=== PATIENT | male | born 1960 | race American Indian/Alaskan Native ===

== ENCOUNTER 2019-03-25 06:33 | Inpatient (IN) | payer OTHER ==
[2019-03-19 11:18] LABS: Basophils % (Auto) 0.6 % (0.0-1.8); Eosinophils % (Auto) 0.9 % (0.0-4.3); Hematocrit 41.5 % (35.5-45.6); Hemoglobin 13.5 gm/dl (11.8-15.2); Lymphocytes # (Auto) 1.2 K/mm3 (1.2-5.4); Lymphocytes % (Auto) 33.7 % (13.4-35.0); Mean Corpuscular HGB Conc 33 % (32-34); Mean Corpuscular Volume 85 fl (84-94); Monocytes # (Auto) 0.6 K/mm3 (0.0-0.8); Monocytes % (Auto) 15.9 % (0.0-7.3); Platelet Count 233 K/mm3 (140-440); Red Blood Count 4.86 M/mm3 (3.65-5.03); Red Cell Distribution Width 15.4 % (13.2-15.2)
[2019-03-19 11:27] LABS: INR 1.06 (0.87-1.13)
[2019-03-19 11:28] LABS: Partial Thromboplastin Time 26.2 Sec. (24.2-36.6)
[2019-03-19 11:30] LABS: Alanine Aminotransferase 44 units/L (7-56); Albumin 4.2 g/dL (3.9-5); BUN/Creatinine Ratio 13; Blood Urea Nitrogen 16 mg/dL (9-20); Calcium 9.3 mg/dL (8.4-10.2); Hemolysis Index 18
--- NOTE | 2019-03-19 12:02 | Anesthesia Consultation ---
Anesthesia Consult and Med Hx Date of service: 03/19/19 - Airway Anesthetic Teeth Evaluation: Good ROM Head & Neck: Adequate Mental/Hyoid Distance: Adequate Mallampati Class: Class II Intubation Access Assessment: Probably Good - Pulmonary Exam CTA: Yes - Cardiac Exam Cardiac Exam: RRR - Pre-Operative Health Status ASA Pre-Surgery Classification: ASA2 Proposed Anesthetic Plan: General - Pulmonary Hx Smoking: Yes (STOPPED X 9 YRS) Hx Respiratory Symptoms: No Hx Sleep Apnea: No (LAURYN PRE SCREEN HIGH RISK.) - Cardiovascular System Hx Hypertension: Yes Hx Heart Attack/AMI: No (reports recent neg stress test) - Central Nervous System Hx Seizures: No CVA: No - Gastrointestinal Hx Ulcer: Yes (UGIB 2/2 PUD requiring transfusion in 10/2018) Hx Gastroesophageal Reflux Disease: No - Endocrine Hx Renal Disease: No Hx Liver Disease: No Hx Insulin Dependent Diabetes: No Hx Non-Insulin Dependent Diabetes: No Hx Thyroid Disease: No - Hematic Hx Anemia: No - Other Systems Hx Cancer: Yes (prostate Ca) Hx Obesity: No
[~2019-03-25 06:33] MED LIST: NEURONTIN PO NR; VERSED IV NR
[2019-03-25] MEDS ORDERED: METHYLENE BLUE ONE (07:14)
[2019-03-25] MEDS ORDERED: NEOSPORIN GU IR ONE ×2 (07:14→09:13)
[2019-03-25] MEDS ORDERED: TYLENOL PO ONE (07:21)
--- NOTE | 2019-03-25 07:21 | Anesthesia Day of Surgery ---
Anesthesia Day of Surgery - Day of Surgery Patient Examined: Yes Patient H&P Reviewed: Yes Patient is NPO: Yes Beta Blockers: Yes Cardiac Clearance: Yes
[2019-03-25] MEDS: LACTATED RINGERS 1,000 ML IV SCH (07:30)
[2019-03-25] MEDS ORDERED: XYLOCAINE MPF 2% ONE (07:50)
[2019-03-25] MEDS ORDERED: ZEMURON IV ONE ×2 (07:50→08:49)
[2019-03-25] MEDS ORDERED: ANCEF/STERILE WATER 2 GM/20 ML 2 GM/20 ML SYRINGE IV NR (07:50)
[2019-03-25] MEDS ORDERED: SUBLIMAZE ONE (07:51)
[2019-03-25] MEDS ORDERED: DIPRIVAN 10 MG/ML IV ONE (07:51)
[2019-03-25] MEDS ORDERED: VERSED ONE (07:51)
[2019-03-25] MEDS ORDERED: NORCO 5/325 PO PRN (07:54)
[2019-03-25] MEDS ORDERED: NARCAN 0.4 MG/1 ML IV PRN (07:54)
[2019-03-25] MEDS ORDERED: PERCOCET 5/325 PO PRN (07:54)
--- NOTE | 2019-03-25 07:59 | Post Operative Note ---
Pre-op diagnosis: CA prostate Post-op diagnosis: same Findings: as above Procedure: Radical prostatectomy Anesthesia: GETA Surgeon: SORAIDA BROOKS Injection Moulding Machine Operator: GHAZAL PERLA Estimated blood loss: other (800) Pathology: list (prostate) Specimen disposition: to lab Condition: stable Disposition: PACU
[2019-03-25] MEDS ORDERED: D5W/0.45% NACL/KCL 20 MEQ 20 MEQ/1,000 ML BAG IV SCH (08:00)
[2019-03-25] MEDS ORDERED: ACD-A 500 ML IV ONE (08:10)
[2019-03-25] MEDS ORDERED: LACTATED RINGERS 1,000 ML ONE ×2 (09:18→10:56)
[2019-03-25] MEDS ORDERED: PHENYLEPHRINE/NS Syringe 1,000 MCG/10 ML IV ONE (09:20)
[2019-03-25] MEDS ORDERED: NEO SYNEPHRINE ONE (09:31)
[2019-03-25] MEDS ORDERED: NACL 0.9% 100 ML ONE (09:31)
[2019-03-25] MEDS ORDERED: NACL 0.9% 500 ML 500 ML IV NR (10:00)
[2019-03-25] MEDS ORDERED: NACL 0.9% 1000 ML 1,000 ML ONE (10:08)
[2019-03-25] MEDS ORDERED: DILAUDID ONE ×2 (10:51→11:16)
[2019-03-25] MEDS ORDERED: LASIX ONE (10:56)
[2019-03-25] MEDS ORDERED: BLOXIVERZ ONE (10:58)
[2019-03-25] MEDS ORDERED: ROBINUL ONE (10:58)
--- NOTE | 2019-03-25 11:33 | XRay Report ---
PELVIS, ONE VIEW INDICATION: INSTRUMENT COUNT. Looking for umbilical tape. COMPARISON: None. IMPRESSION: Midline surgical skin david are identified indicating recent surgery. There are multip le surgical clips in the lower pelvis. A surgical drain is also identified in the lower pelvis. No r adiopaque foreign body is identified in the pelvis on x-ray. The bony structures are intact. Signer Name: Chiki Genao Jr, MD Signed: 03/25/2019 11:29 AM Workstation Name: [id number]
[2019-03-25] MEDS: COLACE PO SCH ×2 (13:57→21:27)
--- NOTE | 2019-03-25 14:17 | Post Anesthesia Evaluation ---
- Post Anesthesia Evaluation Patient Participated: Yes Airway Patent: Yes Stable Respiratory Function: Yes Nausea/Vomiting: No Temp > 96.8F: Yes Pain Manageable: Yes Adequeate Hydration: Yes Anesthesia Complications: No Block Receding Appropriately: Not Applicable Patient on Ventilator: No
--- NOTE | 2019-03-25 17:05 | Operative Report ---
PREOPERATIVE DIAGNOSES: Extensive prostate cancer. POSTOPERATIVE DIAGNOSIS: Extensive prostate cancer. PROCEDURE: Radical retropubic prostatectomy. SURGEON: Dr. Yara Jung. ANESTHESIA: General. FINDINGS: This is a gentleman with extensive prostate cancer. He is young, he is healthy. He now presents for surgery. All risks and implications discussed. DESCRIPTION OF PROCEDURE: The patient was brought to the operating room and placed on the operating table. Following induction of anesthesia, placed over the break of the table, prepped and draped in usual sterile fashion. A midline incision was made after the timeout. A Lam catheter was placed and the incision was carried down to the rectus sheath. Rectus sheath was opened. The space of Retzius was developed. Right in the beginning, we could see how narrow his pelvis was. We identified both iliacs. There were no suspicious nodes. The pelvis was quite narrow with a very prominent pubic symphysis. This extended out. It was very, very deep. We opened up the endopelvic on each side. Prostate was not enlarged. With difficulty to get an S clamp because of the narrowness of the pelvis around the dorsal venous complex, this was tied and suture ligated. Once this was divided, we had better exposure. We pulled back on the prostate. The urethra was isolated with an umbilical tape and opened up. Once we had excellent visibility, 6 sutures were placed with the Capio to be used later. Posterior urethra was divided and then visibility was better because we were able to pull up on the prostate. Excellent plane between the prostate and rectum was developed and the pedicles were taken with right angle clips and Hemoclips as needed. Once we got up to the base, the Denonvilliers fascia was opened. We exposed both seminal vesicles and vasa which were also tacked in deep. The vesicles were dissected down to the tips and the vesicles were divided. Once that was done, the prostate was dissected free with the cautery off of the bladder neck. It should be noted we placed the bladder neck suture because there was some back bleeding from the prostate. Hemostasis was excellent. We used clips and ties as needed. Once the pedicles were free, the bladder neck was opened. The catheter was brought through and the posterior aspect of any adhesions were taken out and the specimen was removed. The wound was irrigated. At this point, the bladder neck was reconstructed with 3-0 Vicryl. Two sutures were placed at the 12 o'clock position with 2-0 Vicryl. The patient tolerated the procedure well. Wound was irrigated. A catheter with the balloon check was placed after all six sutures were placed. This was with the needle muro on each side. The patient tolerated the procedure well. Catheter was irrigated. It looked to be watertight. A drain was brought out through a separate stab wound. We used FloSeal 10. Hemostasis was good. During the case, there was some oozing, mostly backbleeding. That is why there was a little more blood loss because of the narrowness of the pelvis as well. Estimated blood loss was 800-900 mL. He was given Cell Saver. Catheter was working well and attention was turned towards closure. The drain was secured in and the muscle was approximated with Vicryl, fascia with looped PDS, skin with clips. He was brought to recovery room in stable condition. They had to get an x-ray because they thought that we cut the umbilical tape, which was never cut at all. X-ray was normal. Brought to recovery in stable condition. JOB# [id number] KULWINDER/LUCRECIA
[2019-03-25] MEDS ORDERED: AMBIEN PO PRN (22:00)
[2019-03-25] MEDS: ANCEF/NS 1 GM/50 ML 1 GM/50 ML BAG IV SCH (22:19)
[2019-03-26 06:08] LABS: Basophils % (Auto) 0.5 % (0.0-1.8); Eosinophils % (Auto) 0.5 % (0.0-4.3); Hematocrit 38.1 % (35.5-45.6); Hemoglobin 12.4 gm/dl (11.8-15.2); Lymphocytes # (Auto) 1.4 K/mm3 (1.2-5.4); Mean Corpuscular HGB Conc 33 % (32-34); Mean Corpuscular Volume 86 fl (84-94); Monocytes # (Auto) 0.7 K/mm3 (0.0-0.8); Monocytes % (Auto) 10.1 % (0.0-7.3); Platelet Count 214 K/mm3 (140-440); Red Blood Count 4.42 M/mm3 (3.65-5.03); Red Cell Distribution Width 15.5 % (13.2-15.2)
[2019-03-26 06:16] LABS: BUN/Creatinine Ratio 9; Blood Urea Nitrogen 10 mg/dL (9-20); Calcium 8.6 mg/dL (8.4-10.2); Hemolysis Index 26
[2019-03-26] MEDS: ANCEF/NS 1 GM/50 ML 1 GM/50 ML BAG IV SCH ×2 (08:14→19:33)
--- NOTE | 2019-03-26 08:20 | Consultation ---
History of Present Illness - Reason for Consult Consult date: 03/25/19 Medical management Requesting physician: SORAIDA BROOKS - History of Present Illness S/p Radical prostatectomy.post op doing well.No complications.Has history of HTM and Prostate cancer . Past History Past Medical History: cancer, hypertension Past Surgical History: Other (Radical prostatectomy) Social history: no significant social history, lives with family, full code Family history: hypertension Medications and Allergies Allergies Allergy/AdvReac Type Severity Reaction Status Date / Time No Known Allergies Allergy Verified 03/12/19 12:12 Home Medications Medication Instructions Recorded Confirmed Last Taken Type Metoprolol [Lopressor TAB] 50 mg PO DAILY 03/12/19 03/25/19 03/25/19 06:00 History amLODIPine [Norvasc] 10 mg PO DAILY 03/12/19 03/25/19 03/25/19 06:00 History Active Meds: Active Medications Acetaminophen/Hydrocodone Bitart ([place] 5/325) 2 each PO Q4H PRN PRN Reason: Pain, Moderate (4-6) Docusate Sodium (Colace) 100 mg PO BID [facility] Last Admin: 03/25/19 21:27 Dose: Not Given Documented by: Lactated Ringer's (Lactated Ringers) 1,000 mls @ 100 mls/hr IV DIRECT COLBY Last Admin: 03/25/19 07:30 Dose: 100 mls/hr Documented by: Potassium Chloride/Dextrose/Sod Cl (D5w/0.45% Nacl/Kcl 20 Meq) 20 meq in 1,000 mls @ 125 mls/hr IV DIRECT COLBY Cefazolin Sodium (Ancef/Ns 1 Gm/50 Ml) 1 gm in 50 mls @ 100 mls/hr IV Q8H COLBY; Protocol Stop: 03/27/19 08:29 Last Admin: 03/25/19 22:19 Dose: 100 mls/hr Documented by: Naloxone HCl (Narcan 0.4 Mg/1 Ml) 0.1 mg IV Q2MIN PRN PRN Reason: Res Rate </= 8 or 02 SAT < 92% Oxycodone/Acetaminophen (Percocet 5/325) 2 tab PO Q6H PRN PRN Reason: Pain, Moderate (4-6) Zolpidem Tartrate (Ambien) 10 mg PO QHS PRN PRN Reason: Insomnia Review of Systems All systems: negative Exam - Constitutional Vitals: Temp Pulse Resp BP Pulse Ox 98.5 F 63 20 126/83 98 03/26/19 05:03/26/19 05:03/26/19 05:09 03/26/19 05:03/26/19 05:09 General appearance: Present: no acute distress, well-nourished - EENT Eyes: Present: PERRL ENT: hearing intact, clear oral mucosa - Neck Neck: Present: supple, normal ROM - Respiratory Respiratory effort: normal Respiratory: bilateral: CTA - Cardiovascular Heart rate: 78 Rhythm: regular Heart Sounds: Present: S1 & S2. Absent: rub, click - Extremities Extremities: no ischemia, pulses intact, pulses symmetrical, No edema Peripheral Pulses: within normal limits - Abdominal General gastrointestinal: Present: soft, non-tender, non-distended, normal bowel sounds Male genitourinary: Present: normal - Integumentary Integumentary: Present: clear, warm, dry - Musculoskeletal Musculoskeletal: gait normal, strength equal bilaterally - Psychiatric Psychiatric: appropriate mood/affect, intact judgment & insight - Neurologic Neurologic: CNII-XII intact, moves all extremities Results - Labs CBC & Chem 7: 03/26/19 05:15 03/26/19 05:15 Labs: Abnormal lab results 03/25/19 03/26/19 03/26/19 Range/Units 07:30 05:15 05:15 RDW 15.5 H (13.2-15.2) % [place] % (Auto) 10.1 H (0.0-7.3) % Glucose 103 H (75-100) mg/dL Crossmatch See Detail Short CBC 03/26/19 Range/Units 05:15 WBC 6.5 (4.5-11.0) K/mm3 Hgb 12.4 (11.8-15.2) gm/dl Hct 38.1 (35.5-45.6) % Plt Count 214 (140-440) K/mm3 BMP 03/26/19 05:15 Sodium 138 Potassium 4.5 Chloride 103.1 Carbon Dioxide 24 BUN 10 Creatinine 1.1 Glucose 103 H Calcium 8.6 Assessment and Plan - Patient Problems (1) Prostate cancer Current Visit: Yes Status: Chronic Plan to address problem: S/p Radical prostatectomy. post op doing well (2) HTN (hypertension) Current Visit: Yes Status: Chronic Qualifiers: Hypertension type: essential hypertension Qualified Code(s): I10 - Essential (primary) hypertension Plan to address problem: Cont antihypertensives (3) DVT prophylaxis Current Visit: Yes Status: Acute Plan to address problem: On SCD's and GI prophylaxis
[2019-03-26] MEDS: COLACE PO SCH ×2 (10:04→21:17)
[2019-03-26] MEDS: LACTATED RINGERS 1,000 ML IV SCH ×2 (10:05→22:16)
[2019-03-26] MEDS: LOPRESSOR PO SCH (10:25)
[2019-03-26] MEDS: NORVASC PO SCH (10:26)
--- NOTE | 2019-03-26 12:11 | Progress Note ---
Assessment and Plan min j/p looks well oob ambulatibng oswald po home in am Subjective Date of service: 03/26/19 Principal diagnosis: cap Objective - Constitutional Vitals: Vital Signs - 12hr 03/26/19 03/26/19 03/26/19 05:09 08:00 10:25 Temperature 98.5 F 97.8 F Pulse Rate 63 68 76 Respiratory 20 20 Rate Blood Pressure 126/83 118/73 Blood Pressure 118/77 [Left] O2 Sat by Pulse 98 Oximetry 03/26/19 10:26 Temperature Pulse Rate 76 Respiratory Rate Blood Pressure 118/73 Blood Pressure [Left] O2 Sat by Pulse Oximetry General appearance: Present: no acute distress - Neck Neck: supple - Respiratory Respiratory effort: normal Extremities: no ischemia - Gastrointestinal General gastrointestinal: Present: soft, non-tender - Labs CBC & Chem 7: 03/26/19 05:15 03/26/19 05:15 Labs: Abnormal lab results 03/26/19 03/26/19 Range/Units 05:15 05:15 RDW 15.5 H (13.2-15.2) % [place] % (Auto) 10.1 H (0.0-7.3) % Glucose 103 H (75-100) mg/dL Medications & Allergies - Medications Allergies/Adverse Reactions: Allergies No Known Allergies Allergy (Verified 03/12/19 12:12) Home Medications: Home Medications Medication Instructions Recorded Confirmed Last Taken Type Metoprolol [Lopressor TAB] 50 mg PO DAILY 03/12/19 03/25/19 03/25/19 06:00 History amLODIPine [Norvasc] 10 mg PO DAILY 03/12/19 03/25/19 03/25/19 06:00 History Active Medications: Generic Name Dose Route Start Last Admin Trade Name Freq PRN Reason Stop Dose Admin Acetaminophen/Hydrocodone Bitart 2 each 03/25/19 07:54 [place] 5/325 PO Q4H PRN Pain, Moderate (4-6) Amlodipine Besylate 10 mg 03/26/19 10:00 03/26/19 10:26 Norvasc PO Not Given DAILY COLBY Docusate Sodium 100 mg 03/25/19 10:00 03/26/19 10:04 Colace PO 100 mg BID COLBY Administration Lactated Ringer's 1,000 mls @ 100 mls/hr 03/19/19 13:00 03/26/19 10:05 Lactated Ringers IV 100 mls/hr DIRECT COLBY Administration Potassium Chloride/Dextrose/Sod Cl 20 meq in 1,000 mls @ 125 mls/hr 03/25/19 08:00 D5w/0.45% Nacl/Kcl 20 Meq IV DIRECT COLBY Cefazolin Sodium 1 gm in 50 mls @ 100 mls/hr 03/25/19 16:00 03/25/19 22:19 Ancef/Ns 1 Gm/50 Ml IV 03/27/19 08:29 100 mls/hr Q8H COLBY Administration Protocol Metoprolol Tartrate 50 mg 03/26/19 10:00 03/26/19 10:25 Lopressor PO Not Given DAILY COLBY Naloxone HCl 0.1 mg 03/25/19 07:54 Narcan 0.4 Mg/1 Ml IV Q2MIN PRN Res Rate </= 8 or 02 SAT < 92% Oxycodone/Acetaminophen 2 tab 03/25/19 07:54 Percocet 5/325 PO Q6H PRN Pain, Moderate (4-6) Zolpidem Tartrate 10 mg 03/25/19 22:00 Ambien PO QHS PRN Insomnia
[2019-03-26] MEDS ORDERED: NACL 0.9% 1,000 ML IR ONE (13:16)
--- NOTE | 2019-03-26 14:19 | Progress Note ---
Assessment and Plan Assessment and plan: Prostatectomy s/p radical prostatectomy 03/25/19 Poss dc home tomorrow Hypertension Monitor BP Continue Norvasc History Interval history: feels better Less pain surgical site Hospitalist Physical - Physical exam Narrative exam: Gen: Not in acute distress, lying in bed HEENT: Normocephalic, atraumatic Neck: supple, no JVD Heart: S1 and S2 reg, no murmurs, rubs or gallop Lungs: Clear to auscultation, no rhonchi, no wheeze Abd: soft, non tender, non distended, normal BS, Ext: No edema, no clubbing, no cyanosis Neuro: Awake, alert, oriented X 3, no focal neurological signs Lam catheter in - Constitutional Vitals: Temp Pulse Resp BP Pulse Ox 97 F L 77 20 125/81 95 03/26/19 12:00 03/26/19 12:00 03/26/19 12:00 03/26/19 12:00 03/26/19 12:00 General appearance: Present: no acute distress Results - Labs CBC & Chem 7: 03/26/19 05:15 03/26/19 05:15 Labs: Laboratory Last Values WBC 6.5 K/mm3 (4.5-11.0) 03/26/19 05:15 RBC 4.42 M/mm3 (3.65-5.03) 03/26/19 05:15 Hgb 12.4 gm/dl (11.8-15.2) 03/26/19 05:15 Hct 38.1 % (35.5-45.6) 03/26/19 05:15 MCV 86 fl (84-94) 03/26/19 05:15 MCH 28 pg (28-32) 03/26/19 05:15 MCHC 33 % (32-34) 03/26/19 05:15 RDW 15.5 % (13.2-15.2) H 03/26/19 05:15 Plt Count 214 K/mm3 (140-440) 03/26/19 05:15 Lymph % (Auto) 21.0 % (13.4-35.0) 03/26/19 05:15 [place] % (Auto) 10.1 % (0.0-7.3) H 03/26/19 05:15 Eos % (Auto) 0.5 % (0.0-4.3) 03/26/19 05:15 Baso % (Auto) 0.5 % (0.0-1.8) 03/26/19 05:15 Lymph # 1.4 K/mm3 (1.2-5.4) 03/26/19 05:15 [place] # 0.7 K/mm3 (0.0-0.8) 03/26/19 05:15 Eos # 0.0 K/mm3 (0.0-0.4) 03/26/19 05:15 Baso # 0.0 K/mm3 (0.0-0.1) 03/26/19 05:15 Seg Neutrophils % 67.9 % (40.0-70.0) 03/26/19 05:15 Seg Neutrophils # 4.4 K/mm3 (1.8-7.7) 03/26/19 05:15 PT 13.5 Sec. (12.2-14.9) 03/19/19 10:50 INR 1.06 (0.87-1.13) 03/19/19 10:50 APTT 26.2 Sec. (24.2-36.6) 03/19/19 10:50 Sodium 138 mmol/L (137-145) 03/26/19 05:15 Potassium 4.5 mmol/L (3.6-5.0) 03/26/19 05:15 Chloride 103.1 mmol/L (98-107) 03/26/19 05:15 Carbon Dioxide 24 mmol/L (22-30) 03/26/19 05:15 15 mmol/L 03/26/19 05:15 BUN 10 mg/dL (9-20) 03/26/19 05:15 1.1 mg/dL (0.8-1.5) 03/26/19 05:15 Estimated GFR > 60 ml/min 03/26/19 05:15 9 % 03/26/19 05:15 Glucose 103 mg/dL (75-100) H 03/26/19 05:15 Calcium 8.6 mg/dL (8.4-10.2) 03/26/19 05:15 0.30 mg/dL (0.1-1.2) 03/19/19 10:50 AST 31 units/L (5-40) 03/19/19 10:50 ALT 44 units/L (7-56) 03/19/19 10:50 55 units/L (35-129) 03/19/19 10:50 7.2 g/dL (6.3-8.2) 03/19/19 10:50 4.2 g/dL (3.9-5) 03/19/19 10:50 1.4 % 03/19/19 10:50 Blood Type O POSITIVE 03/25/19 07:30 Antibody Screen Negative 03/25/19 07:30 Crossmatch See Detail 03/25/19 07:30 Active Medications - Current Medications Current Medications: Generic Name Dose Route Start Last Admin Trade Name Freq PRN Reason Stop Dose Admin Acetaminophen/Hydrocodone Bitart 2 each 03/25/19 07:54 [place] 5/325 PO Q4H PRN Pain, Moderate (4-6) Amlodipine Besylate 10 mg 03/26/19 10:00 03/26/19 10:26 Norvasc PO Not Given DAILY COLBY Docusate Sodium 100 mg 03/25/19 10:00 03/26/19 10:04 Colace PO 100 mg BID COLBY Administration Lactated Ringer's 1,000 mls @ 100 mls/hr 03/19/19 13:00 03/26/19 10:05 Lactated Ringers IV 100 mls/hr DIRECT COLBY Administration Potassium Chloride/Dextrose/Sod Cl 20 meq in 1,000 mls @ 125 mls/hr 03/25/19 08:00 D5w/0.45% Nacl/Kcl 20 Meq IV DIRECT COLBY Cefazolin Sodium 1 gm in 50 mls @ 100 mls/hr 03/25/19 16:00 03/25/19 22:19 Ancef/Ns 1 Gm/50 Ml IV 03/27/19 08:29 100 mls/hr Q8H COLBY Administration Protocol Metoprolol Tartrate 50 mg 03/26/19 10:00 03/26/19 10:25 Lopressor PO Not Given DAILY COLBY Naloxone HCl 0.1 mg 03/25/19 07:54 Narcan 0.4 Mg/1 Ml IV Q2MIN PRN Res Rate </= 8 or 02 SAT < 92% Oxycodone/Acetaminophen 2 tab 03/25/19 07:54 Percocet 5/325 PO Q6H PRN Pain, Moderate (4-6) Zolpidem Tartrate 10 mg 03/25/19 22:00 Ambien PO QHS PRN Insomnia
[2019-03-27] MEDS: ANCEF/NS 1 GM/50 ML 1 GM/50 ML BAG IV SCH (01:17)
[2019-03-27] MEDS: LOPRESSOR PO SCH (10:42)
[2019-03-27] MEDS: COLACE PO SCH (10:42)
[2019-03-27] MEDS: NORVASC PO SCH (10:43)
[2019-03-27 10:44] VITALS: BP 132/91
--- NOTE | 2019-03-27 12:24 | Progress Note ---
Assessment and Plan drain removed abad draining home today Subjective Date of service: 03/27/19 Principal diagnosis: cap Objective - Constitutional Vitals: Vital Signs - 12hr 03/27/19 03/27/19 03/27/19 04:15 07:04 07:23 Temperature 98.0 F 98.7 F 98.7 F Pulse Rate 86 83 92 H Respiratory 17 18 20 Rate Blood Pressure 124/77 130/90 Blood Pressure 130/90 [Left] O2 Sat by Pulse 91 95 94 Oximetry 03/27/19 03/27/19 03/27/19 10:00 10:42 10:43 Temperature Pulse Rate 89 89 Respiratory Rate Blood Pressure 132/91 132/91 Blood Pressure [Left] O2 Sat by Pulse 92 Oximetry General appearance: Present: no acute distress - Neck Neck: supple Extremities: no ischemia - Gastrointestinal General gastrointestinal: Present: soft, non-tender - Labs CBC & Chem 7: 03/26/19 05:15 03/26/19 05:15 Labs: Abnormal lab results 03/25/19 Range/Units 07:30 Crossmatch See Detail Medications & Allergies - Medications Allergies/Adverse Reactions: Allergies No Known Allergies Allergy (Verified 03/12/19 12:12) Home Medications: Home Medications Medication Instructions Recorded Confirmed Last Taken Type Metoprolol [Lopressor TAB] 50 mg PO DAILY 03/12/19 03/25/19 03/25/19 06:00 History amLODIPine [Norvasc] 10 mg PO DAILY 03/12/19 03/25/19 03/25/19 06:00 History Active Medications: Generic Name Dose Route Start Last Admin Trade Name Freq PRN Reason Stop Dose Admin Acetaminophen/Hydrocodone Bitart 2 each 03/25/19 07:54 [place] 5/325 PO Q4H PRN Pain, Moderate (4-6) Amlodipine Besylate 10 mg 03/26/19 10:00 03/27/19 10:43 Norvasc PO 10 mg DAILY COLBY Administration Docusate Sodium 100 mg 03/25/19 10:00 03/27/19 10:42 Colace PO 100 mg BID COLBY Administration Lactated Ringer's 1,000 mls @ 100 mls/hr 03/19/19 13:00 03/26/19 22:16 Lactated Ringers IV 100 mls/hr DIRECT COLBY Administration Potassium Chloride/Dextrose/Sod Cl 20 meq in 1,000 mls @ 125 mls/hr 03/25/19 08:00 D5w/0.45% Nacl/Kcl 20 Meq IV DIRECT COLBY Metoprolol Tartrate 50 mg 03/26/19 10:00 03/27/19 10:42 Lopressor PO 50 mg DAILY COLBY Administration Naloxone HCl 0.1 mg 03/25/19 07:54 Narcan 0.4 Mg/1 Ml IV Q2MIN PRN Res Rate </= 8 or 02 SAT < 92% Oxycodone/Acetaminophen 2 tab 03/25/19 07:54 Percocet 5/325 PO Q6H PRN Pain, Moderate (4-6) Zolpidem Tartrate 10 mg 03/25/19 22:00 Ambien PO QHS PRN Insomnia
--- NOTE | 2019-03-27 12:25 | Discharge Summary ---
Short Stay Discharge Plan Activity: other (no lifting ) Weight Bearing Status: Full Weight Bearing Diet: low fat, low cholesterol Wound: open to air Special Instructions: other (inc fluids ) Durable Medical Equipment Needed Upon Discharge: other (teach abad care ) Follow up with: BRAN YOUNG MD [Primary Care Provider] - 7 Days SORAIDA BROOKS MD [Staff Physician] - 10 Days
== END 2019-03-27 14:30 | disposition home or self-care (01) | DRG 708 ==
LOC: OR 06:33 → 3B-SURG 07:54
PROVIDERS: ADMIT Urology; ATTEND Urology
PROC: 0VT00ZZ Resection of Prostate, Open Approach (ICD-10-PCS; principal; 2019-03-25)
PROC: 0VT30ZZ Resection of Bilateral Seminal Vesicles, Open Approach (ICD-10-PCS; 2019-03-25)
PROC: 0TQB0ZZ Repair Bladder, Open Approach (ICD-10-PCS; 2019-03-25)
PROC: 0VBQ0ZZ Excision of Bilateral Vas Deferens, Open Approach (ICD-10-PCS; 2019-03-25)
DX: C61 Malignant neoplasm of prostate (principal); I10 Essential (primary) hypertension; Z87.891 Personal history of nicotine dependence; Z87.11 Personal history of peptic ulcer disease; Z82.49 Family history of ischemic heart disease and other diseases of the circulatory system; Z79.899 Other long term (current) drug therapy
CPT/HCPCS: 36415; 72170; 80048; 80053; 85025; 85610; 85730; 86850; 86900; 86901; 86920; 88309; 88341; 88342; 94760; G0378; C9250; J0690; J1170; J1940; J2250; J2370; J2704; J2710; J3010; J7030; J7120; Q9968